=== PATIENT | male | born 1970 | race Caucasian/White ===

== ENCOUNTER 2017-09-10 18:07 | Emergency (ER) | payer BC ==
[~2017-09-10] VITALS: Ht 167.6 cm; Wt 61.4 kg
[2017-09-10] MEDS ORDERED: EPIPEN ADU0.3 MG/0.3 IM (20:13)
[2017-09-10] MEDS ORDERED: MEDROL DOSEPAK4 MG PO (20:13)
[2017-09-10 20:43] VITALS: BP 134/79
== END 2017-09-10 20:45 | disposition home or self-care (01) ==
LOC: EME 18:07 → EXP 18:07
DX: S80.262A Insect bite (nonvenomous), left knee, initial encounter (principal); R42 Dizziness and giddiness; R06.02 Shortness of breath; T63.441A Toxic effect of venom of bees, accidental (unintentional), initial encounter
CPT/HCPCS: 99281; 99284; J1200; J2930; J7030; S0028